=== PATIENT | male | born 1970 | race African-American/Black ===

== ENCOUNTER 2023-12-29 11:24 | Emergency (ER) | payer MEDICAID ==
[~2023-12-29] VITALS: Ht 170.2 cm; Wt 70.0 kg
[2023-12-29 11:28] VITALS: O2SAT 99
[2023-12-29] MEDS ORDERED: GABA100C MT (12:17)
[2023-12-29 12:30] VITALS: BP 129/75; PULSE 68; RESP 17; TEMP 97.6
== END 2023-12-29 14:04 | disposition home or self-care (01) ==
LOC: ER 11:24
DX: R20.2 Paresthesia of skin (principal)
CPT/HCPCS: 99283